=== PATIENT | female | born 1940 | race Caucasian/White ===

== ENCOUNTER 2018-11-28 18:39 | Emergency (ER) | payer MEDICARE ==
[~2018-11-28] VITALS: Ht 152.4 cm; Wt 59.1 kg
[~2018-11-28 18:39] MED LIST: BENAZEPRIL PO; CEPH-443 PO; DIAZ5TAB PO; IBUP800T48 PO
[2018-11-28] MEDS ORDERED: KETOROLAC 15 MG INJ IV STA ×2 (18:50→20:23)
[2018-11-28] MEDS ORDERED: DIAZEPAM 5 MG/ML SYG IV ONE ×2 (19:00→20:30)
[2018-11-28 19:13] VITALS: Ht 152.4 cm; Wt 59.1 kg
[2018-11-28] MEDS ORDERED: ACETAMINOPHEN 500 MG TAB PO STA (20:23)
--- NOTE | 2018-11-28 21:56 | ERD ---
ER Documentation Chief Complaint Chief Complaint RIGHT SIDED BACK PAIN; STATES WAS LIFTING AND THEN COULD NOT GET UP HPI 78-year-old female who presents with right lumbar back pain. The patient states that 2 to 3 days of symptoms. She states that she has been lifting heavy objects as she is moving. She denies any sudden pain but she has had throbbing and aching over this timeframe. She denies any numbness or tingling, no bowel or bladder incontinence and retention. No midline pain. The pain is moderate to severe and spasmodic. No fevers or chills dysuria urgency or frequency. ROS All systems reviewed and are negative except as per history of present illness. Medications Home Meds Active Scripts Diazepam* (Valium*) 5 Mg Tablet, 5 MG PO Q8 PRN for MUSCLE SPASMS, #10 TAB Prov:MAXIMO LACKEY MD 11/28/18 Ibuprofen* (Motrin*) 800 Mg Tab, 800 MG PO Q6H PRN for PAIN AND OR ELEVATED TEMP, #30 TAB Take with food Prov:MAXIMO LACKEY MD 11/28/18 Reported Medications [Benazepril] 10 MG TAB No Conflict Check, PO DAILY 09/20/12 Discontinued Scripts Cephalexin* (Keflex*) 500 Mg Capsule, 500 MG PO QID for 7 Days, CAP Prov:XAVIER LOZANO MD 11/16/15 Allergies Allergies: Coded Allergies: alcohol (Unverified Allergy, Unknown, 11/28/18) Uncoded Allergies: ANEASTHETICS (Allergy, Unknown, 11/16/15) NARCOTICS (Allergy, Unknown, 11/16/15) PMhx/Soc History of Surgery: Yes (SHOULDER, HYSTERECTOMY) Hx Cardiac Disorders: Yes (HTN) Hx Alcohol Use: No Hx Substance Use: No Hx Tobacco Use: No Smoking Status: Never smoker FmHx Family History: No diabetes Physical Exam Vitals Vital Signs Date Temp Pulse Resp B/P (MAP) Pulse Ox O2 O2 Flow FiO2 Time Delivery Rate 11/28/18 98.2 77 19 142/90 97 Room Air 23:29 (107) 11/28/18 79 20 158/73 96 Room Air 21:16 (101) 11/28/18 88 15 143/75 99 Room Air 19:31 (97) 11/28/18 98.7 99 20 178/111 99 19:13 (133) Physical Exam General: Well developed, well nourished, no acute distress Head: Normocephalic, atraumatic. Eyes: Pupils equally reactive, EOM intact ENT: Moist mucous membranes Neck: Supple, no lymphadenopathy Respiratory: Lungs clear bilaterally, no distress Cardiovascular: RRR, no murmurs, rubs, or gallops Abdominal: Soft, non-tender, non-distended, no peritoneal signs : Deferred Back: No midline tenderness deformities or step-offs. The patient has soft tissue paraspinal right-sided lumbar reproducible tenderness to palpation. MSK: No edema, no unilateral swelling, 5/5 strength negative straight leg raise. Intact reflexes of bilateral lower extremity's. Neurologic: Alert and oriented, moving all extremities, normal speech, no focal weakness, no cerebellar signs Skin: No rash Psych: Normal mood Results 24 hrs Current Medications Medications Dose Sig/Mami Start Time Status Last (Trade) Ordered Route PRN Stop Time Admin Dose Reason Admin Ketorolac 15 mg ONCE STAT 11/28/18 DC 11/28/18 Tromethamine IV 18:50 19:23 (Toradol) 11/28/18 18:51 Diazepam 2.5 mg ONCE ONCE 11/28/18 DC 11/28/18 (Valium) IV 19:00 19:23 11/28/18 19:01 Ketorolac 15 mg ONCE STAT 11/28/18 DC 11/28/18 Tromethamine IV 20:23 20:34 (Toradol) 11/28/18 20:25 Diazepam 2.5 mg ONCE ONCE 11/28/18 DC 11/28/18 (Valium) IV 20:30 20:34 11/28/18 20:31 1,000 mg ONCE STAT 11/28/18 DC 11/28/18 Acetaminophen PO 20:23 20:34 (Tylenol 11/28/18 20:25 Tab) Procedures/MDM EKG, MONITORS, & DIAGNOSTIC IMAGING: X-ray lumbar spine: No acute process per radiologist read MEDICAL DECISION MAKING: The patient's low back pain is unlikely related to serious etiology. The patient exhibits no clinical signs or symptoms and has no history or risk factors to suggest cauda equina, cord compression, epidural abscess, epidural hematoma, acute aortic aneurysm or dissection. Clinical exam is very consistent with muscular skeletal spasm. Very low pretest probability for fracture compression fracture. ER COURSE: * Patient was given Toradol and Valium with an improvement of 10 out of 10 pain to 6 out of 10 pain. However the patient still having some discomfort. Repeat dosing provided. * X-ray imaging performed and shows no acute process * The patient required observation with dramatic improvement over period of time with repeat dosing. The patient is now ambulatory with some slight lucretia tance. She prefers strongly to go home. I believe the benefits outweigh the risks at this time. Return precautions were discussed and understood. The patient tolerated Valium nicely. Patient was informed of half tablet dosing as needed at home. Observation Note: Indication: Back pain Duration: Greater than 4 hours Family history: As noted above The patient was observed with serial exams over the above timeframe. The patient continued to be well-appearing, and observation continued without complication. CONSULTATION: None DISPOSITION PLAN: The patient does not have an identifiable emergent medical condition that warrants inpatient hospitalization at this time. The patient is deemed safe for discharge with outpatient follow-up. We discussed follow up with the patient's primary care doctor within 24 to 48 hours as needed. We also discussed return to the emergency room for worsening symptoms or worsening condition. Outpatient referral: None required Discharge Medications: Motrin, Valium Departure Diagnosis: Primary Impression: Lumbar back sprain Encounter type: initial encounter Qualified Codes: S33.5XXA - Sprain of ligaments of lumbar spine, initial encounter Condition: Stable MAXIMO LACKEY MD Nov 28, 2018 21:56
[2018-11-28 23:39] VITALS: BP 141/81; PULSE 81; RESP 20
== END 2018-11-28 23:40 | disposition home or self-care (01) ==
LOC: E/R 18:39
DX: S33.5XXA Sprain of ligaments of lumbar spine, initial encounter (principal); I10 Essential (primary) hypertension; X50.0XXA Overexertion from strenuous movement or load, initial encounter; Y92.9 Unspecified place or not applicable
CPT/HCPCS: 72100; 96374; 96375; 96376; 99284; J1885; J3360